=== PATIENT | female | born 1975 | race African-American/Black ===

== ENCOUNTER 2022-01-10 16:16 | Emergency (ER) | payer OTHER ==
[~2022-01-10] VITALS: Ht 165.1 cm; Wt 50.0 kg
[2022-01-10 16:23] VITALS: BP 144/92
[2022-01-10] MEDS ORDERED: KETOROLAC 60MG/2ML VIAL IM ONE (17:00)
[2022-01-10] MEDS ORDERED: TETANUS, DIPHTHERIA, PERTUSSIS VAC/PF 0.5ML (>10YR OLD) IM ONE (17:15)
[2022-01-10] MEDS ORDERED: BACITRACIN ZINC OINT UDPKT TOP ONE (17:15)
== END 2022-01-10 19:36 | disposition left against medical advice (07) ==
LOC: ER 16:16
DX: S01.81XA Laceration without foreign body of other part of head, initial encounter (principal); J44.9 Chronic obstructive pulmonary disease, unspecified; R56.9 Unspecified convulsions; V19.9XXA Pedal cyclist (driver) (passenger) injured in unspecified traffic accident, initial encounter; Y93.89 Activity, other specified; Y92.410 Unspecified street and highway as the place of occurrence of the external cause; Z86.711 Personal history of pulmonary embolism
CPT/HCPCS: 70486; 73030; 73130; 81025; 90715; 99284; J1885

== ENCOUNTER 2022-11-25 20:21 | Emergency (ER) | payer MEDICAID, OTHER ==
[2022-11-25 20:38] VITALS: PULSE 105
== END 2022-11-26 00:28 | disposition left against medical advice (07) ==
LOC: ER 20:21
DX: Z53.21 Procedure and treatment not carried out due to patient leaving prior to being seen by health care provider (principal)
CPT/HCPCS: 99281